=== PATIENT | female | born 1995 | race Caucasian/White ===

== ENCOUNTER → 2017-01-13 | Outpatient (CLI) | payer BC, OTHER ==
[2017-01-13 13:24] LABS: GLUCOSE,FASTING 81 mg/dl (70-99)
[2017-01-13 13:31] LABS: ESTIMATED AVERAGE GLUCOSE 91 mg/dl; HA1C FLAG Normal (Normal)
== END | disposition home or self-care (01) ==
LOC: C.LABMFLN 07:42
PROVIDERS: ATTEND Psychiatry & Neurology Psychiatry
DX: F41.1 Generalized anxiety disorder (principal); F25.0 Schizoaffective disorder, bipolar type

== ENCOUNTER → 2017-05-11 | Outpatient (CLI) | payer BC, OTHER ==
[2017-05-11 17:58] LABS: BASO % 1.1 %; BASO ABS # 0.09 K/uL (0-0.2); COMPLETE YES; EOS % 2.8 %; HEMATOCRIT 43.2 % (37-47); IG% 0.3 %; LYMPH % 26.3 %; MEAN CELL VOLUME 91.3 fL (80-100); MEAN CORPUSCULAR HEMOGLOBIN 32.8 pg (25-34); MEAN CORPUSCULAR HGB CONC 35.9 g/dl (32-36); MEAN PLATELET VOLUME 11.1 fL (7.4-10.4); MONO % 5.4 %; NEUT % 64.1 %; PLATELET COUNT 218 K/uL (130-400); RED BLOOD COUNT 4.73 M/uL (4.2-5.4); WHITE BLOOD COUNT 7.97 K/uL (4.8-10.8)
[2017-05-11 18:17] LABS: THYROID STIMULATING HORMONE 0.358 uIu/ml (0.300-4.500)
== END | disposition home or self-care (01) ==
LOC: C.LABMFLN 15:53
PROVIDERS: ATTEND Physician Assistant
DX: R53.83 Other fatigue (principal)